=== PATIENT | female | born 1990 | race Asian ===

== ENCOUNTER 2017-01-31 21:48 | Emergency (ER) | payer OTHER ==
[~2017-01-31] VITALS: Ht 157.5 cm; Wt 63.5 kg
[2017-01-31 23:29] LABS: BLOOD UREA NITROGEN 9 mg/dL (7-18)
[2017-01-31] MEDS ORDERED: PREN1TAB62 PO (23:32)
[2017-01-31 23:45] LABS: PATH.CAST-FLAG NOT PRESENT; SPERM-FLAG NOT PRESENT; SRC-FLAG NOT PRESENT; XTAL-FLAG NOT PRESENT; YLC-FLAG NOT PRESENT
[2017-01-31 23:50] VITALS: BP 114/76
== END 2017-02-01 01:40 | disposition home or self-care (01) ==
LOC: ED 23:05
DX: O26.891 Other specified pregnancy related conditions, first trimester (principal); R10.2 Pelvic and perineal pain; Z3A.01 Less than 8 weeks gestation of pregnancy
CPT/HCPCS: 36415; 76801; 80048; 81001; 82040; 84702; 85025; 87086; 99285

== ENCOUNTER 2017-09-18 10:20 | Inpatient (IN) | payer OTHER ==
[~2017-09-18] VITALS: Ht 157.5 cm; Wt 78.0 kg
[~2017-09-18 10:20] MED LIST: PREN1TAB62 PO
[2017-09-18 10:40] LABS: MICROSCOPIC NOT IND
[2017-09-18] MEDS ORDERED: hydrALAzine 20 MG/ML, 1ML IV ONE (11:00)
[2017-09-18] MEDS ORDERED: hydrALAzine 20 MG/ML, 1ML ONE (11:02)
[2017-09-18 11:12] LABS: BASOPHILS # (AUTO) 0.04 x10^3/uL (0-0.1); BASOPHILS % (AUTO) 0 % (0-1); EOSINOPHILS % (AUTO) 1 % (1-7); LYMPHOCYTES # (AUTO) 2.04 x10^3/uL (1-3.4); LYMPHOCYTES % (AUTO) 18 % (22-44); MD NO; MEAN CORPUSCULAR HEMOGLOBIN 30.4 pg (27.0-34.8); MEAN CORPUSCULAR HGB CONC 33.1 g/dL (32.4-35.8); MONOCYTES # (AUTO) 0.66 x10^3/uL (0.2-0.8); MONOCYTES % (AUTO) 6 % (2-9); NEUTROPHILS # (AUTO) 8.81 x10^3/uL (1.8-6.8); NEUTROPHILS % (AUTO) 76 % (42-75); PLATELET COUNT 279 x10^3/uL (130-400); RED BLOOD COUNT 4.53 x10^6/uL (3.82-5.3); RED CELL DISTRIBUTION WIDTH 13.4 % (9.6-15.2)
[2017-09-18] MEDS: LACTATED RINGERS 1,000 ML IV SCH (11:15)
[2017-09-18 11:24] LABS: ALANINE AMINOTRANSFERASE 16 U/L (12-78); ALBUMIN 2.9 g/dL (3.4-5.0); ANION GAP 8 mmol/L (5-15); CHLORIDE 108 mmol/L (98-107); CREATININE 0.59 mg/dL (0.55-1.02)
[2017-09-18 11:26] LABS: ALKALINE PHOSPHATASE 131 U/L (45-117); BILIRUBIN,TOTAL 0.2 mg/dL (0.2-1.0); TOTAL PROTEIN 7.3 g/dL (6.4-8.2)
[2017-09-18 11:28] LABS: BILIRUBIN, DIRECT < 0.1 mg/dL (0.1-0.2)
[2017-09-18] MEDS ORDERED: PLEASE ENTER HEIGHT AND WEIGHT MC SCH (11:30)
[2017-09-18] MEDS ORDERED: OXYTOCIN 30U/ 0.9% NaCL 500ML 500 ML IV PRN (13:09)
[2017-09-18] MEDS ORDERED: OXYTOCIN 30U/ 0.9% NaCL 500ML 500 ML IV ONE (13:09)
[2017-09-18] MEDS ORDERED: D5%-LACTATED RINGERS 1,000 ML IV SCH (13:09)
[2017-09-18] MEDS ORDERED: LACTATED RINGERS 1,000 ML IV SCH (13:09)
[2017-09-18] MEDS ORDERED: NEWBORN KIT ONE (13:18)
[2017-09-18] MEDS ORDERED: LIDOCAINE 1%, 20ML ONE (13:18)
[2017-09-18] MEDS ORDERED: MAGNESIUM SULF. PMX 20GM/500ML 500 ML IV ONE (13:18)
[2017-09-18] MEDS ORDERED: LABETALOL 100 MG TABLET ONE (13:18)
[2017-09-18] MEDS ORDERED: OXYTOCIN 30U/ 0.9% NaCL 500ML 500 ML ONE (13:18)
[2017-09-18] MEDS ORDERED: MISOPROSTOL 25 MCG TABLET ONE (13:19)
[2017-09-18] MEDS ORDERED: MISOPROSTOL 200 MCG TABLET ONE (13:19)
[2017-09-18] MEDS ORDERED: FENTANYL PF 100 MCG/2ML IVPush PRN (13:30)
[2017-09-18] MEDS ORDERED: CALCIUM CARBONATE 500 MG TAB.CHEW PO PRN (13:30)
[2017-09-18] MEDS ORDERED: ONDANSETRON 2MG/ML, 2ML IVPush PRN (13:30)
[2017-09-18] MEDS ORDERED: ALUMINUM/MAG/SIMETHICONE 30 ML UDC PO PRN (13:30)
[2017-09-18] MEDS ORDERED: hydrALAzine 20 MG/ML, 1ML IV PRN (13:30)
[2017-09-18] MEDS ORDERED: MISOPROSTOL 25 MCG TABLET VG PRN (13:30)
[2017-09-18] MEDS ORDERED: SODIUM CITRATE/CITRIC ACID 30 ML UDC PO PRN (13:30)
[2017-09-18] MEDS ORDERED: SODIUM CHLORIDE FLUSH 10ML SYR IVF PRN (13:30)
[2017-09-18 14:04] LABS: TOTAL PROTEIN,URINE RANDOM 8 mg/dL (0-12)
[2017-09-18 14:14] LABS: CREATININE,URINE RANDOM < 13.00 mg/dL; PROTEIN/CREATININE RATIO,URINE 615 (0-200)
[2017-09-18] MEDS ORDERED: SODIUM CHLORIDE NASAL SPRAY 45ML BOTTLE NAS PRN (16:30)
[2017-09-18] MEDS ORDERED: LABETALOL 200 MG TABLET PO SCH (18:00)
[2017-09-18] MEDS ORDERED: PENICILLIN GK 5,000,000 UNITS in DEXTROSE 5% 100 ML IVPB ONE (19:00)
[2017-09-18] MEDS ORDERED: LABETALOL 200 MG TABLET ONE (21:55)
[2017-09-18] MEDS: LABETALOL 200 MG TABLET PO SCH (21:59)
[2017-09-18] MEDS ORDERED: MAGNESIUM SULFATE PMX 4GM/100M 100 ML ONE (22:25)
[2017-09-18] MEDS ORDERED: MAGNESIUM SULFATE PMX 4GM/100M 100 ML IVPB ONE (22:30)
[2017-09-18] MEDS ORDERED: PENICILLIN GK 2,500,000 UNITS in DEXTROSE 5% 100 ML IVPB SCH (23:00)
[2017-09-18] MEDS: MAGNESIUM SULF. PMX 20GM/500ML 500 ML IV PRN (23:08)
[2017-09-19] MEDS ORDERED: OXYTOCIN 30U/ 0.9% NaCL 500ML 500 ML IV SCH (02:22)
[2017-09-19] MEDS ORDERED: OXYcodone/APAP 5/325MG TABLET ONE ×2 (02:27→07:47)
[2017-09-19] MEDS ORDERED: CALCIUM CARBONATE 500 MG TAB.CHEW PO PRN (02:30)
[2017-09-19] MEDS ORDERED: BISACODYL 10 MG SUPP PR PRN (02:30)
[2017-09-19] MEDS ORDERED: MISOPROSTOL 200 MCG TABLET PR PRN (02:30)
[2017-09-19] MEDS ORDERED: ONDANSETRON 2MG/ML, 2ML IV PRN (02:30)
[2017-09-19] MEDS ORDERED: ACETAMINOPHEN 325 MG TABLET PO PRN (02:30)
[2017-09-19] MEDS ORDERED: CARBOPROST TROMETHAMINE 250 MCG/ML, 1ML IM PRN (02:30)
[2017-09-19] MEDS ORDERED: OXYcodone/APAP 5/325MG TABLET PO PRN (02:30)
[2017-09-19] MEDS: OXYcodone/APAP 5/325MG TABLET PO PRN ×2 (02:45→07:49)
[2017-09-19] MEDS ORDERED: OXYTOCIN 30U/ 0.9% NaCL 500ML 500 ML ONE (03:13)
[2017-09-19] MEDS: LACTATED RINGERS 1,000 ML IV SCH ×4 (03:30→22:00)
[2017-09-19 04:15] VITALS: BP 131/73
[2017-09-19] MEDS: OXYTOCIN 30U/ 0.9% NaCL 500ML 500 ML IV SCH ×3 (05:13→22:22)
[2017-09-19] MEDS ORDERED: LABETALOL 200 MG TABLET ONE (06:57)
[2017-09-19] MEDS: LABETALOL 200 MG TABLET PO SCH ×2 (06:59→22:31)
[2017-09-19 07:14] VITALS: BP 118/69
[2017-09-19] MEDS ORDERED: PRENATAL VIT/IRON/FA 1 EACH TABLET ONE (07:47)
[2017-09-19] MEDS ORDERED: DOCUSATE 100 MG CAPSULE ONE (07:47)
[2017-09-19] MEDS: DOCUSATE 100 MG CAPSULE PO PRN ×2 (07:49→23:52)
[2017-09-19] MEDS: PRENATAL VIT/IRON/FA 1 EACH TABLET PO SCH (07:49)
[2017-09-19] MEDS ORDERED: MAGNESIUM SULF. PMX 20GM/500ML 0 ML IV ONE (08:28)
[2017-09-19] MEDS: MAGNESIUM SULF. PMX 20GM/500ML 500 ML IV PRN (08:31)
[2017-09-19 10:37] LABS: MEAN CORPUSCULAR HEMOGLOBIN 30.4 pg (27.0-34.8); MEAN CORPUSCULAR HGB CONC 32.9 g/dL (32.4-35.8); MEAN CORPUSCULAR VOLUME 92.3 fL (80-100); MEAN PLATELET VOLUME 8.5 fL (7.4-10.4); PLATELET COUNT 251 x10^3/uL (130-400); RED BLOOD COUNT 4.09 x10^6/uL (3.82-5.3); RED CELL DISTRIBUTION WIDTH 13.2 % (9.6-15.2)
[2017-09-19 10:56] LABS: MD YES
[2017-09-19 10:58] LABS: <PLATELET ESTIMATE> ADEQUATE; <PLT MORPHOLOGY> NORMAL PLT MORPH; <RBC MORPHOLOGY> NORMAL; BAND#(MANUAL) 1.24 x10^3/uL; BANDS%(MANUAL) 6 % (0-7); LYMPH#(MANUAL) 2.27 x10^3/uL (1-3.4); LYMPHS% (MANUAL) 11 % (22-44); MONOS#(MANUAL) 1.44 x10^3/uL (0.3-2.7); MONOS% (MANUAL) 7 % (2-9); SEG#(MANUAL) 15.66 x10^3/uL (1.8-6.8); SEGS% (MANUAL) 76 % (42-75)
[2017-09-19] MEDS ORDERED: ACETAMINOPHEN 325 MG TABLET ONE ×2 (11:49→17:22)
[2017-09-19 11:53] VITALS: BP 116/61
[2017-09-19] MEDS: ACETAMINOPHEN 325 MG TABLET PO PRN ×2 (11:53→17:25)
[2017-09-19 15:27] VITALS: BP 105/55
[2017-09-19] MEDS ORDERED: MAGNESIUM SULF. PMX 20GM/500ML 500 ML IV ONE (17:29)
[2017-09-19 22:00] VITALS: BP_SYST 142; BP_DIAS 89; BP_DIAS 95
[2017-09-19 23:45] VITALS: BP 131/85
[2017-09-20] VITALS (7 sets, daily range): BP systolic 126–144; BP diastolic 74–92
[2017-09-20] MEDS: LACTATED RINGERS 1,000 ML IV SCH ×3 (03:30→19:30)
[2017-09-20] MEDS: LABETALOL 200 MG TABLET PO SCH ×2 (06:00→08:32)
[2017-09-20] MEDS: PRENATAL VIT/IRON/FA 1 EACH TABLET PO SCH (07:45)
[2017-09-20] MEDS: DOCUSATE 100 MG CAPSULE PO PRN ×2 (07:45→22:09)
[2017-09-20] MEDS: ACETAMINOPHEN 325 MG TABLET PO PRN ×2 (07:46→18:06)
[2017-09-20] MEDS: OXYTOCIN 30U/ 0.9% NaCL 500ML 500 ML IV SCH ×2 (08:22→18:22)
[2017-09-20] MEDS: niFEDipine ER 30 MG TABLET.ER PO SCH (16:18)
[2017-09-21] VITALS (9 sets, daily range): BP systolic 127–149; BP diastolic 84–109
[2017-09-21] MEDS: ACETAMINOPHEN 325 MG TABLET PO PRN ×2 (01:06→07:47)
[2017-09-21] MEDS: OXYTOCIN 30U/ 0.9% NaCL 500ML 500 ML IV SCH ×2 (04:22→14:22)
[2017-09-21] MEDS: PRENATAL VIT/IRON/FA 1 EACH TABLET PO SCH (07:46)
[2017-09-21] MEDS: DOCUSATE 100 MG CAPSULE PO PRN (07:47)
[2017-09-21] MEDS: niFEDipine ER 30 MG TABLET.ER PO SCH (07:47)
[2017-09-21] MEDS ORDERED: NIFE30TA2 PO (09:04)
[2017-09-21] MEDS: OXYcodone/APAP 5/325MG TABLET PO PRN (15:24)
== END 2017-09-21 19:15 | disposition home or self-care (01) | DRG 775 ==
LOC: LDOP 10:20 → LDIP 10:55 → OBSVTOIN 13:09 → LDIP 13:30 → 2NE 09-19 03:30 → 2NW 09-19 19:59
PROVIDERS: ADMIT Obstetrics & Gynecology; ATTEND Obstetrics & Gynecology
PROC: 10E0XZZ Delivery of Products of Conception, External Approach (ICD-10-PCS; principal; 2017-09-19)
PROC: 0KQM0ZZ Repair Perineum Muscle, Open Approach (ICD-10-PCS; 2017-09-19)
PROC: 0U7C7ZZ Dilation of Cervix, Via Natural or Artificial Opening (ICD-10-PCS; 2017-09-19)
DX: O14.14 Severe pre-eclampsia complicating childbirth (principal); O70.1 Second degree perineal laceration during delivery; Z37.0 Single live birth; Z3A.37 37 weeks gestation of pregnancy; Z82.49 Family history of ischemic heart disease and other diseases of the circulatory system
CPT/HCPCS: 36415; 80053; 81003; 82248; 82570; 83735; 84156; 84550; 85025; 86850; 86900; G0378; J2540; J0360; J2590; J3475; J7120

== ENCOUNTER → 2017-11-04 | Outpatient (CLI) | payer OTHER ==
[~2017-11-04] MED LIST changes: +NIFE30TA2 PO
== END | disposition home or self-care (01) ==
LOC: CFH 11:41
PROVIDERS: ATTEND Nurse Practitioner Family
DX: M25.562 Pain in left knee (principal); M25.561 Pain in right knee

== ENCOUNTER 2021-01-26 12:15 | Outpatient (CLI) | payer OTHER ==
[~2021-01-26] VITALS: Ht 157.5 cm; Wt 62.9 kg
[2021-01-26] MEDS ORDERED: CHLORHEXIDINE 15 ML UDC ONE (12:59)
[2021-01-26 13:00] VITALS: BP 126/83
[2021-01-26] MEDS ORDERED: VITAMIN D PO (13:21)
[2021-01-26] MEDS ORDERED: AIRBORNE PO (13:21)
[2021-01-26] MEDS ORDERED: LACTATED RINGERS 1,000 ML IV SCH (13:30)
[2021-01-26] MEDS ORDERED: CHLORHEXIDINE 15 ML UDC PO ONE (13:30)
[2021-01-26 13:31] LABS: BASOPHILS % (AUTO) 1 % (0-1); EOSINOPHILS % (AUTO) 4 % (1-7); LYMPHOCYTES % (AUTO) 33 % (22-44); MEAN CORPUSCULAR HGB CONC 33.1 g/dL (32.4-35.8); MEAN PLATELET VOLUME 7.6 fL (7.4-10.4); MONOCYTES % (AUTO) 5 % (2-9); NEUTROPHILS % (AUTO) 57 % (42-75); PLATELET COUNT 264 x10^3/uL (130-400); RED BLOOD COUNT 4.18 x10^6/uL (3.82-5.3); RED CELL DISTRIBUTION WIDTH 13.1 % (9.6-15.2)
[2021-01-26] MEDS ORDERED: FENTANYL PF 250 MCG/5ML ONE (13:44)
[2021-01-26] MEDS ORDERED: MIDAZOLAM 1 MG/ML, 2ML ONE (13:44)
[2021-01-26] MEDS ORDERED: MISOPROSTOL 200 MCG TABLET ONE (13:48)
[2021-01-26] MEDS ORDERED: SILVER NITRATE STICK TP ONE (13:48)
[2021-01-26] MEDS ORDERED: METHYLERGONOVINE 0.2 MG/ML IM ONE (13:48)
[2021-01-26] MEDS ORDERED: OXYTOCIN 10 UNITS/ML, 1ML ONE (13:48)
[2021-01-26] MEDS ORDERED: OXYcodone 5 MG/5 ML ORAL.SOL UDC PO PRN (14:00)
[2021-01-26] MEDS ORDERED: hydrALAzine 20 MG/ML, 1ML IV PRN (14:00)
[2021-01-26] MEDS ORDERED: MEPERIDINE/PF 25MG/0.5ML IVPush PRN (14:00)
[2021-01-26] MEDS ORDERED: HYDROmorphone 1 MG/ML, 1ML INJ IVPush PRN (14:00)
[2021-01-26] MEDS ORDERED: FENTANYL PF 100 MCG/2ML IV PRN (14:00)
[2021-01-26] MEDS ORDERED: ACETAMINOPHEN 325 MG TABLET PO PRN (14:00)
[2021-01-26] MEDS ORDERED: ONDANSETRON 2MG/ML, 2ML IVPush PRN (14:00)
[2021-01-26] MEDS ORDERED: PROMETHAZINE 25 MG/ML, 1ML IVPush PRN (14:00)
[2021-01-26] MEDS ORDERED: LABETALOL 5MG/ML, 20ML IV PRN (14:00)
== END 2021-01-26 23:59 | disposition home or self-care (01) ==
LOC: OUT 12:15 → STAR 12:15 → EDSTATUS 14:00 → STAR 23:59
PROVIDERS: ATTEND Obstetrics & Gynecology
DX: Z01.812 Encounter for preprocedural laboratory examination (principal); Z20.822 Contact with and (suspected) exposure to COVID-19; O02.1 Missed abortion
CPT/HCPCS: 36415; 76856; 85025; 86850; 86900; 87635; J2250; J3010; J2210; J2590; J7120